=== PATIENT | female | born 1960 | race Caucasian/White ===

== ENCOUNTER 2020-04-27 19:49 | Emergency (ER) | payer BC ==
[~2020-04-27] VITALS: Ht 157.5 cm; Wt 78.9 kg
[2020-04-27 20:59] LABS: ABSOLUTE NEUTROPHILS 7.3 thou/uL (1.4-8.2); BASOPHILS 1.2 % (0.0-2.0); EOSINOPHILS 1.8 % (0.0-3.0); HEMOGLOBIN 17.1 gm/dL (12.0-15.0); LYMPHOCYTES 28.4 % (24.0-44.0); MCH 29.9 pg (26.0-34.0); MCV 85.4 fL (80.0-100.0); MONOCYTES 4.5 % (1.0-8.0); PLATELET COUNT 323 thou/uL (150-400); POLYS 64.1 % (36.0-66.0); RBC 5.73 mil/uL (4.20-5.00); RDW 13.5 % (10.5-14.5); WBC 11.3 thou/uL (4.0-11.0)
[2020-04-27 20:59] LABS: URINE BILIRUBIN NEGATIVE (Negative); URINE BLOOD NEGATIVE (Negative); URINE CLARITY CLEAR; URINE COLOR YELLOW; URINE GLUCOSE-RANDOM* 3+ (Negative); URINE KETONES TRACE (Negative); URINE LEUKOCYTES-REFLEX NEGATIVE (Negative); URINE NITRITE-REFLEX NEGATIVE (Negative); URINE PROTEIN (DIPSTICK) TRACE (Negative); URINE UROBILINOGEN 0.2 E.U./dl (0.2-1.0)
[2020-04-27 21:09] LABS: ANION GAP 8 mmol/L (7-16); BUN 9 mg/dL (7-18); CALCIUM 9.7 mg/dL (8.5-10.1); CHLORIDE 92 mmol/L (98-107); CO2 32 mmol/L (21-32); CREATININE 1.1 mg/dL (0.6-1.0); GLUCOSE 374 mg/dL (74-106); POTASSIUM 3.6 mmol/L (3.5-5.1); SODIUM 132 mmol/L (136-145)
[2020-04-27 21:24] LABS: TROPONIN-I <0.06 ng/mL (<0.06)
[2020-04-27] MEDS ORDERED: ZESTRIL5 MG PO (21:53)
[2020-04-27 21:56] VITALS: BP 162/73
--- NOTE | 2020-04-28 10:04 | EKG ---
[facility] [place] [address] ELECTROCARDIOGRAM REPORT Name: VIDAL DESAI Issa Room #: DEP [facility]#: [id number] Admission: 04/27/20 Attend Phys: Discharge: 04/27/20 Date of : 58 Report #: [id number] THIS REPORT FOR: cc: Familia Carson MD, Steven E. 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
== END 2020-04-27 21:56 | disposition home or self-care (01) ==
LOC: ER 19:49
PROVIDERS: Nurse Practitioner
DX: I10 Essential (primary) hypertension (principal); E78.00 Pure hypercholesterolemia, unspecified; E11.9 Type 2 diabetes mellitus without complications; Z88.8 Allergy status to other drugs, medicaments and biological substances